=== PATIENT | male | born 2000 | race Caucasian/White ===

== ENCOUNTER 2025-03-25 02:35 | Emergency (ER) | payer BC, SELFPAY ==
[2025-03-25 02:39] VITALS: BP 122/76
[2025-03-25 04:47] VITALS: BMI 26.1
[2025-03-25 04:48] VITALS: BP 136/79
--- NOTE | 2025-03-25 06:47 | ED.GENMED ---
History of Present Illness
General
Chief Complaint: Dental Problem
Source: patient
Exam Limitations: none
Time Seen by Provider: 03/25/25 06:01
Nursing documentation reviewed up to this point in time: agreed with except (Patient complains of pain to the right upper gumline denies any wisdom teeth pain.)
History of Present Illness
History of Present Illness:
Patient is a 25-year-old male who presents to the ER for evaluation of right sided mouth pain. He reports the entire right upper gumline is causing him pain. he denies any specific tooth pain. Pain started last night. He does have a dentist has
not seen a dentist in a while. No associated fevers. He did take Tylenol ibuprofen last night prior to coming to the ER he denies any obvious facial swelling or difficulty breathing..
Phy Exam
General Physical Exam
General Presentation: no apparent distress
General age: appears stated age
General Skin: warm and dry
General Habitus: normal
General Mental: alert
General Hydration: appears well hydrated
ENT Exam
ENT Exam: EOMI, neck supple and other (Patient with obvious widespread dental decay no obvious dental tenderness however right upper gumline is very red and swollen no fluctuance no trismus no drooling)
Neurological Exam
Neurological Exam: alert and oriented x3
Musculoskeletal Exam
Musculoskeletal Exam: full ROM
Skin Exam
Skin Exam: normal color and warm/dry
Psychiatric Exam
Psychiatric Exam: normal mood/affect
Course
Orders/Labs/Results
Orders:
Orders
03/25/25 06:46
Ketorolac [Toradol] 30 mg IM NOW STA
Penicillin V Potassium [Pen Vk] 500 mg PO NOW STA
03/25/25 06:47
Acetaminophen [Tylenol] 1,000 mg PO NOW STA
Vital Signs
Initial and Last Documented VS:
Initial Vital Signs
Pulse Resp BP Pulse Ox
70 18 122/76 98
03/25/25 02:39 05/12/25 02:39 03/25/25 02:39 03/25/25 02:39
Last Documented Vital Signs
Temp Pulse Resp BP Pulse Ox
97.7 F 77 18 136/79 100
03/25/25 04:48 03/25/25 04:48 03/25/25 04:48 03/25/25 04:48 03/25/25 04:48
MDM/Problems Addressed
Differential Diagnosis Includes:
Not limited to acute gingivitis, abscess, dental pain
MDM/Problems Addressed:
Patient with widespread dental decay and poor dental hygiene right upper gumline is red and swollen no obvious fluctuance or abscess no trismus afebrile no acute distress will medicate with IM Toradol Tylenol and antibiotics. 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
dentist Doris Aleman I discussed close follow-up with his dentist he is to call today to make an appointment soon as possible
*Critical Care Note
Total Time (30-74mins, 75-104mins- exclusive of procedures): Not Applicable
ED Attending Note
-
Portions of this chart may have been created with voice recognition software.� Occasional wrong word or��sound alike� substitutions may have occurred due to the inherent limitations of voice recognition software.
Discharge Plan
Departure
Patient Disposition: Home (Routine Discharge)
Date of Disposition: 03/25/25
Time of Disposition: 06:49
Patient with high blood pressure during this ER visit?: Yes
Condition: Fair
Covid-19: Not Applicable
Discharge Problem:
dental pain, Pain in gums
Instructions: Gingivitis (DC), Dental Pain (DC), BLOOD PRESSURE
Prescriptions:
New
penicillin V potassium 500 mg tablet
500 mg PO TID Qty: 30 0RF
Referrals:
Edwin Garsia CRNP [Family Provider] -
Activity Restrictions/Additional Instructions:
A prescription for antibiotics was sent to your pharmacy take as directed. Please follow-up with your dentist please call this morning for an appointment as soon as possible. He may continue to alternate between ibuprofen and Tylenol. Return if
any worsening of symptoms including increasing pain swelling fever chills or any further concerns.
Interventions
Interventions:
*Risk Screen - Suicide Last Done: 03/25/25 02:39
*General Assessment Last Done: 03/25/25 04:48
*Neglect/Abuse Screening Last Done: 03/25/25 02:39
*ED- Fall Risk Assessment Last Done: 03/25/25 04:48
*ED COVID-19 Vaccine History Last Done: 03/25/25 04:48
Discharge Date and Time
Print Language: AMERICAN
[2025-03-25] MEDS: TORADOL 30 MG IM (07:03)
[2025-03-25] MEDS: TYLENOL 1000 MG PO (07:03)
[2025-03-25] MEDS: PEN VK 500 MG PO (07:03)
== END 2025-03-25 07:09 | disposition home or self-care (01) ==
LOC: EMR 02:35
PROVIDERS: EMERGENCY PHYSICIAN Emergency Medicine; FAMILY PHYSICIAN Nurse Practitioner Family
DX: K08.89 Other specified disorders of teeth and supporting structures (principal); K02.9 Dental caries, unspecified; R03.0 Elevated blood-pressure reading, without diagnosis of hypertension
CPT/HCPCS: 99284; 96372